=== PATIENT | male | born 1970 ===

== ENCOUNTER 2020-07-17 05:32 | Emergency (ER) | payer SELFPAY ==
[~2020-07-17] VITALS: Ht 188 cm; Wt 87.0 kg
[2020-07-17 05:34] VITALS: BP 115/90
== END 2020-07-17 05:54 | disposition home or self-care (01) ==
LOC: ED 05:48
DX: S50.862A Insect bite (nonvenomous) of left forearm, initial encounter (principal); S50.861A Insect bite (nonvenomous) of right forearm, initial encounter; W57.XXXA Bitten or stung by nonvenomous insect and other nonvenomous arthropods, initial encounter; Y93.89 Activity, other specified; Y92.89 Other specified places as the place of occurrence of the external cause; Y99.8 Other external cause status
CPT/HCPCS: 99283